=== PATIENT | female | born 1985 | race Caucasian/White ===

== ENCOUNTER 2017-03-25 08:29 | Day surgery (SDC) | payer OTHER ==
[~2017-03-25 08:29] MED LIST: CELECOXIB 100 MG CAPSULE PO ONE; CLINDAMYCIN 600 MG/50 ML 50 ML IV ONE
[2017-03-25 08:48] LABS: HCG UR QUAL NEGATIVE
[2017-03-25] MEDS ORDERED: LACTATED RINGERS 1,000 ML IV ONE ×3 (09:10→12:51)
[2017-03-25] MEDS ORDERED: LIDOCAINE-MPF 2% 5 ML VIAL IM ONE (09:35)
[2017-03-25] MEDS ORDERED: fentaNYL 100 MCG/2 ML VIAL IVP ONE (09:35)
[2017-03-25] MEDS ORDERED: MIDAZOLAM 2 MG/2 ML VIAL IVP ONE (09:35)
[2017-03-25] MEDS ORDERED: ONDANSETRON 4 MG/2 ML VIAL IVP ONE (09:35)
[2017-03-25] MEDS ORDERED: ePHEDrine 50 MG/ML AMP IVP ONE (09:35)
[2017-03-25] MEDS ORDERED: DEXAMETHASONE 4 MG/ML VIAL IVP ONE (09:35)
[2017-03-25] MEDS ORDERED: ACETAMINOPHEN 1,000 MG/100 ML VIAL IV ONE (09:35)
[2017-03-25] MEDS ORDERED: PROPOFOL 200 MG/20 ML VIAL IVP ONE (09:35)
[2017-03-25] MEDS ORDERED: BUPIVACAINE 0.5% PF 10 ML VIAL IM ONE ×2 (09:37)
[2017-03-25] MEDS ORDERED: MORPHINE PF 5 MG/10 ML AMP EPI ONE ×2 (09:37→10:20)
[2017-03-25] MEDS ORDERED: EPINEPHrine 1 MG/ML AMP IVP ONE (09:37)
[2017-03-25] MEDS ORDERED: ROPIVACAINE 0.2% PF 10 ML VIAL EPI ONE ×2 (09:37→10:20)
[2017-03-25] MEDS ORDERED: fentaNYL 100 MCG/2 ML VIAL ONE (10:37)
[2017-03-25] MEDS: oxyCOD/ACETAMIN 5 MG/325 MG TABLET PO ONE ×2 (11:18→11:40)
[2017-03-25] MEDS ORDERED: oxyCOD/ACETAMIN 5 MG/325 MG TABLET PO ONE (11:38)
[2017-03-25 12:03] VITALS: BP 121/66
--- NOTE | 2017-03-27 07:34 | OPERATIVE REPORT ---
DATE OF SURGERY: 03/25/2017 00:00:00 ID#: [id number] OPERATIVE SURGEON: Commander Boy Samuels, Medical [facility] USN PREOPERATIVE DIAGNOSES 1. Left knee soft tissue impingement. 2. Left knee medial meniscus tear. OPERATIVE DIAGNOSES 1. Left knee medial plica impingement. 2. Left knee medial femoral condyle osteochondral defect. OPERATIVE PROCEDURE PERFORMED: Left knee arthroscopy with arthroscopic medial plica resection, Partial fat pad debridement, and medial femoral condyle microfracture. HAIR BOILER SURGEON: PENG. ANESTHESIA PROVIDER: Boy Gonzalez CRNA ANESTHESIA TECHNIQUE: General anesthesia via LMA, and local anesthesia at the incision sites. CIRCULATING NURSE: SOFYA Queen. CLINICAL LABORATORY MEDICAL DIRECTOR: Ms. Juliana RN; Stacey Queen. START TIME: 0936 hours. END TIME: 1026 hours. INJECTED SUBSTANCES INCLUDE: Marcaine 0.5% plain at the portal sites prior to incision. Additional injected substances include ropivacaine 0.2% 5 mL, with 5 mg of Duramorph morphine injected intraarticularly after closure of portal sites for postoperative pain control. IV FLUIDS: 900 mL of lactated Ringer's. PREOPERATIVE ANTIBIOTICS: Ancef 2 grams. ESTIMATED BLOOD LOSS: 5 mL. URINE TEST: Negative. PREOPERATIVE PREP: Hibiclens followed by ChloraPrep applied to exposed operative skin after draping. COMPLICATIONS: None. The patient had ED hose and foot pump in place on the right lower extremity prior to induction of anesthesia and functioning prior to induction of anesthesia. TOURNIQUET TIME: None. 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 The patient was counseled, as far as the findings and options for operative versus nonoperative management, including the risks, benefits, alternatives, and expectations to both operative and nonoperative management. She preferred to have the surgery, received command authorization for surgery. On the day of surgery, she identified the operative site to be her left knee; it was initialed by the operative surgeon. She identified her areas of pain, which were marked with a sterile skin marker. Her urine test was negative. She was then taken back to the operating room, placed in the supine position, and underwent general anesthesia via LMA. After adequate anesthetic control, the patient's bony prominences were well padded. She had a tourniquet applied to the left upper thigh. She underwent examination under anesthesia, which revealed full passive range of motion, stable anterior and posterior drawer, stable Rodrigo's, negative pivot shift or glide, stable to 0 and 30 degrees varus and valgus stress. The patient then underwent Hibiclens prep and standard sterile draping, followed by a surgical pause to confirm the proper patient, procedure, operative site, position, prophylactic antibiotics, surgical initials, and surgical instrumentation in accordance with the [place] Protocol Procedure Verification. Following this, additional ChloraPrep was applied to the exposed operative skin and allowed to dry for 3 minutes. His bony landmarks were outlined with a skin marker. Surgery began with injection of the portal sites with 0.5% Marcaine plain, followed by a stab incision over the anterolateral knee and insertion of the arthroscope into the suprapatellar pouch, where diagnostic arthroscopy began revealing a normal-appearing chondral surface to the medial, central, and lateral patellar facets. The trochlear chondral surface was normal, patellofemoral articulation and tracking was normal. The lateral gutter was entered. There was no sign of synovitis or loose bodies. The medial gutter was entered. There were no signs of synovitis or loose bodies. Medial compartment was then entered under a valgus stress. Under direct visualization, a spinal needle was then inserted to establish location of the anteromedial portal. Stab incision was then made, along with a probe; probing of the medial meniscus showed no sign of tear or instability. The medial femoral condyle was taken through a full range of motion, revealing an approximate 1 x 1 cm area of chondral lesion full thickness. The femoral notch was entered with some ligamentum being resected. The ACL was visualized and probed, there was no sign of tear or insufficiency. The lateral compartment was entered under a figure 4 position. Lateral meniscus was probed and visualized, and there was no sign of tear or insufficiency or instability. The lateral femoral condyle was taken through a full range of motion. There were no signs of chondromalacia on the lateral tibial plateau. The attention was then focused back to the suprapatellar pouch, where the patient had identified as an area of pain. A spinal needle was placed through this area, corresponding to a thick medial plica; this was then resected. The attention was then further focused back to the medial compartment at the area of the medial femoral condyle lesion, which underwent preparation for microfracture using the sucker shaver, meniscal ball rasp, round bur, followed by the microfracture with good backbleeding. The instruments were then removed from the patient's knee. The fluid was allowed to extravasate out. Arthroscopic photos were taken throughout the case. The wounds were then closed with 3-0 Monocryl. The knee was then injected with the ropivacaine and Duramorph. The wounds were then covered with Mastisol, Steri -Strips, Xeroform, sterile plain gauze, sterile Webril, Daniel bandage from mid foot to mid thigh, and a cold therapy cuff and range of motion brace set at 0- 90 degrees. The CPM is being ordered and delivered to the patient's house to begin the femoral condyle microfracture protocol. The patient was then extubated in the operating room, taken to the recovery room in a stable condition, and tolerated the procedure well. The patient's was met in the surgical waiting room and advised of the intraoperative findings, procedure performed, and postop instructions. Edited and electronically signed: CDR Boy Samuels MC, USN [id number] JOB #: [id number] EXT JOB #:[id number] CRISTAL
== END 2017-03-25 08:30 | disposition home or self-care (01) ==
LOC: SDS 08:29
PROVIDERS: ATTEND Orthopaedic Surgery
PROC: 0SBD4ZZ Excision of Left Knee Joint, Percutaneous Endoscopic Approach (ICD-10-PCS; 2017-03-25)
PROC: 0SQD4ZZ Repair Left Knee Joint, Percutaneous Endoscopic Approach (ICD-10-PCS; principal; 2017-03-25 10:30)
DX: M67.52 Plica syndrome, left knee (principal); M21.962 Unspecified acquired deformity of left lower leg
CPT/HCPCS: 29879; 81025; A9270; J0131; J7120